=== PATIENT | female | born 1950 | race Caucasian/White ===

== ENCOUNTER 2024-09-17 20:51 | Inpatient (IN) | payer MEDICARE, OTHER ==
[~2024-09-17] VITALS: Ht 160 cm; Wt 81.6 kg
[2024-09-17 22:34] LABS: BASOPHILS # (AUTO) 0.1 K/uL (0.0-0.2); BASOPHILS % (AUTO) 0.8 % (0.0-2.0); EOSINOPHILS # (AUTO) 0.5 K/uL (0.0-0.7); EOSINOPHILS % (AUTO) 5.4 % (0.0-6.0); HEMATOCRIT 40 % (33-45); HEMOGLOBIN 13.2 g/dL (11.5-14.8); LYMPHOCYTES # (AUTO) 2.4 K/uL (0.8-4.8); LYMPHOCYTES % (AUTO) 25.1 % (20.0-44.0); MEAN CORPUSCULAR HEMOGLOBIN 30 PG (26.0-33.0); MEAN CORPUSCULAR HGB CONC 33 g/dl (31.0-36.0); MEAN CORPUSCULAR VOLUME 90 fL (82-100); MONOCYTES # (AUTO) 1.1 K/uL (0.1-1.30); MONOCYTES % (AUTO) 11.7 % (2.0-12.0); NEUTROPHILS # (AUTO) 5.6 K/uL (1.8-8.9); PLATELET COUNT (AUTO) 311 K/uL (150-450); RED BLOOD CELL COUNT(AUTO) 4.47 MIL/uL (4.0-5.2); RED CELL DISTRIBUTION WIDTH 14.5 % (11.5-15.0); WHITE BLOOD COUNT (AUTO) 9.7 K/uL (4.3-11.0)
[2024-09-17 22:40] LABS: CALCIUM, SERUM 9.3 mg/dL (8.5-10.1); CARBON DIOXIDE 29 mmol/L (21-32); CHLORIDE 110 mmol/L (98-107); CREATININE 0.9 mg/dL (0.6-1.3); GLUCOSE 111 mg/dL (74-106); POTASSIUM 3.7 mmol/L (3.5-5.1); SODIUM SERUM 148 mmol/L (136-145); UREA NITROGEN, BLOOD 15 mg/dL (7-18)
[2024-09-17 22:47] LABS: ALANINE AMINOTRANSFERASE 32 U/L (12-78); ALBUMIN 3.3 g/dL (3.4-5.0); ALKALINE PHOSPHATASE 142 U/L (46-116); ASPARTATE AMINOTRANSFERASE 26 U/L (15-37); BILIRUBIN,DIRECT 0.1 mg/dL (0.0-0.2); BILIRUBIN,TOTAL 0.2 mg/dL (0.2-1.0)
[2024-09-17 22:48] LABS: ACETAMINOPHEN <10 ug/ml (10-30); ALCOHOL, BLOOD < 3 mg/dL (0-10); SALICYLATE 1.4 mg/dL (2.8-20.0)
[2024-09-17] MEDS ORDERED: OLANZAPINE 10 MG VIAL IM ONE (23:43)
[2024-09-17] MEDS: OLANZAPINE 10 MG VIAL IM ONE (23:47)
[2024-09-18 00:09] LABS: APPEARANCE,URINE CLEAR (CLEAR); BILIRUBIN,URINE NEGATIVE (NEGATIVE); BLOOD, URINE NEGATIVE Ery/uL (NEGATIVE); COLOR,URINE YELLOW (YELLOW); KETONES,URINE NEGATIVE (NEGATIVE); LEUKOCYTE ESTERASE ,URINE NEGATIVE (NEGATIVE); NITRITE, URINE NEGATIVE (NEGATIVE); PROTEIN,URINE NEGATIVE (NEGATIVE); UGLUCOSE NEGATIVE (NEGATIVE); UROBILINOGEN,URINE 0.2 EU/dL (0.2)
[2024-09-18 00:18] LABS: AMPHETAMINE, URINE NEGATIVE (NEGATIVE); BARBITURATE, URINE NEGATIVE (NEGATIVE); BENZODIAZEPINE, URINE NEGATIVE (NEGATIVE); CANNABINOID, URINE NEGATIVE (NEGATIVE); COCCAINE, URINE NEGATIVE (NEGATIVE); OPIATE, URINE NEGATIVE (NEGATIVE); PHENCYCLIDINE SCREEN,URINE NEGATIVE (NEGATIVE)
[2024-09-18 03:55] VITALS: BP 113/64; TEMP 97.7; O2SAT 99
[2024-09-18] MEDS ORDERED: MAGNESIUM HYDROXIDE 30 ML UDC PO PRN (04:00)
[2024-09-18] MEDS ORDERED: MAG HYDROX/AL HYDROX/SIMETH 30 ML UDC PO PRN (04:00)
[2024-09-18] MEDS ORDERED: TEMAZEPAM 7.5 MG CAPSULE PO PRN (04:00)
[2024-09-18] MEDS ORDERED: ATOR40TA PO (04:42)
[2024-09-18] MEDS ORDERED: CRAN500T3 PO (04:44)
[2024-09-18] MEDS ORDERED: DIVA125C2 PO (04:45)
[2024-09-18] MEDS ORDERED: DOCU100C36 PO (04:47)
[2024-09-18] MEDS ORDERED: FAMO20TA8 PO (04:48)
[2024-09-18] MEDS ORDERED: HYDR12.55 PO (04:49)
[2024-09-18] MEDS ORDERED: LEVO88TA5 PO (04:50)
[2024-09-18] MEDS ORDERED: LORA-259 PO (04:51)
[2024-09-18] MEDS ORDERED: LOSA50TA39 PO (04:52)
[2024-09-18] MEDS ORDERED: MULT-1119 PO (04:53)
[2024-09-18] MEDS ORDERED: QUET50TA PO (04:55)
[2024-09-18] MEDS ORDERED: QUET25TA PO (04:55)
[2024-09-18] MEDS: BLOOD SUGAR DIAGNOSTIC 1 EACH STRIP IN ONE (05:03)
[2024-09-18] MEDS ORDERED: Z GUARD REMEDY 4 OZ OINT TP PRN (05:30)
[2024-09-18 08:00] VITALS: BP 117/52; TEMP 97.5; O2SAT 100
[2024-09-18] MEDS: LORAZEPAM 0.5 MG TABLET PO PRN (09:52)
[2024-09-18] MEDS: OXCARBAZEPINE 150 MG TABLET PO SCH (12:59)
[2024-09-18 16:00] VITALS: BP 121/58; TEMP 98; O2SAT 100
[2024-09-18] MEDS: FAMOTIDINE (20 MG) 20 MG TABLET PO SCH (17:00)
[2024-09-18 20:21] VITALS: BP 102/54; TEMP 98; O2SAT 99
[2024-09-18] MEDS: ATORVASTATIN 40 MG TABLET PO SCH (21:23)
[2024-09-19 07:47] LABS: BASOPHILS % (AUTO) 0.8 % (0.0-2.0); EOSINOPHILS # (AUTO) 0.4 K/uL (0.0-0.7); EOSINOPHILS % (AUTO) 6.8 % (0.0-6.0); HEMATOCRIT 40 % (33-45); HEMOGLOBIN 13.3 g/dL (11.5-14.8); LYMPHOCYTES # (AUTO) 1.8 K/uL (0.8-4.8); LYMPHOCYTES % (AUTO) 29.1 % (20.0-44.0); MEAN CORPUSCULAR HEMOGLOBIN 30 PG (26.0-33.0); MEAN CORPUSCULAR HGB CONC 33 g/dl (31.0-36.0); MEAN CORPUSCULAR VOLUME 90 fL (82-100); MONOCYTES # (AUTO) 0.6 K/uL (0.1-1.30); MONOCYTES % (AUTO) 10.8 % (2.0-12.0); NEUTROPHILS # (AUTO) 3.2 K/uL (1.8-8.9); NEUTROPHILS % (AUTO) 52.5 % (43.0-81.0); PLATELET COUNT (AUTO) 301 K/uL (150-450); RED BLOOD CELL COUNT(AUTO) 4.45 MIL/uL (4.0-5.2); RED CELL DISTRIBUTION WIDTH 14.5 % (11.5-15.0)
[2024-09-19 07:51] LABS: CALCIUM, SERUM 8.8 mg/dL (8.5-10.1); CREATININE 0.7 mg/dL (0.6-1.3); POTASSIUM 4.4 mmol/L (3.5-5.1)
[2024-09-19 08:00] VITALS: BP 110/88; TEMP 97.8; O2SAT 99
[2024-09-19] MEDS: LEVOTHYROXINE SODIUM 88 MCG TABLET PO SCH (08:27)
[2024-09-19] MEDS: HYDROCHLOROTHIAZIDE 25 MG TABLET PO SCH (08:28)
[2024-09-19] MEDS: DOCUSATE SODIUM 100 MG CAPSULE PO SCH (08:29)
[2024-09-19] MEDS: LOSARTAN POTASSIUM 50 MG TABLET PO SCH (08:29)
[2024-09-19] MEDS: MULTIVITAMINS,THERAGRAN 1 UDTAB TABLET PO SCH (08:29)
[2024-09-19] MEDS: LORAZEPAM 0.5 MG TABLET PO PRN (10:07)
[2024-09-19] MEDS: Fluoxetine 10 mg capsule PO SCH (13:03)
[2024-09-19 16:00] VITALS: BP 102/64; TEMP 97.8; O2SAT 100
[2024-09-19] MEDS: OXCARBAZEPINE 150 MG TABLET PO SCH (17:29)
[2024-09-19] MEDS: TEMAZEPAM 7.5 MG CAPSULE PO PRN (22:05)
[2024-09-19 23:01] VITALS: BP 93/62; TEMP 98.2; O2SAT 97
[2024-09-20 08:00] VITALS: BP 104/64; TEMP 98; O2SAT 100
[2024-09-20] MEDS: ACETAMINOPHEN 325 MG TABLET PO PRN (10:00)
[2024-09-20] MEDS: IBUPROFEN 600 MG TABLET PO PRN (11:58)
[2024-09-20 15:16] VITALS: BP 105/66; TEMP 98.8; O2SAT 96
[2024-09-20] MEDS: LORAZEPAM 0.5 MG TABLET PO ONE (18:20)
[2024-09-20 20:15] VITALS: BP 121/59; TEMP 98.3; O2SAT 95
[2024-09-21 08:00] VITALS: BP 124/79; TEMP 97.2; O2SAT 99
[2024-09-21] MEDS: OXCARBAZEPINE 150 MG TABLET PO SCH (15:18)
[2024-09-21 16:00] VITALS: BP 119/64; TEMP 98.7; O2SAT 98
[2024-09-21 18:11] LABS: BASOPHILS # (AUTO) 0.1 K/uL (0.0-0.2); BASOPHILS % (AUTO) 0.9 % (0.0-2.0); EOSINOPHILS # (AUTO) 0.4 K/uL (0.0-0.7); EOSINOPHILS % (AUTO) 4.1 % (0.0-6.0); HEMATOCRIT 43 % (33-45); HEMOGLOBIN 14.4 g/dL (11.5-14.8); LYMPHOCYTES # (AUTO) 1.8 K/uL (0.8-4.8); LYMPHOCYTES % (AUTO) 18.9 % (20.0-44.0); MEAN CORPUSCULAR HEMOGLOBIN 30 PG (26.0-33.0); MEAN CORPUSCULAR HGB CONC 34 g/dl (31.0-36.0); MEAN CORPUSCULAR VOLUME 89 fL (82-100); MONOCYTES # (AUTO) 0.7 K/uL (0.1-1.30); MONOCYTES % (AUTO) 7.8 % (2.0-12.0); NEUTROPHILS # (AUTO) 6.5 K/uL (1.8-8.9); NEUTROPHILS % (AUTO) 68.3 % (43.0-81.0); PLATELET COUNT (AUTO) 329 K/uL (150-450); RED CELL DISTRIBUTION WIDTH 14.7 % (11.5-15.0); WHITE BLOOD COUNT (AUTO) 9.5 K/uL (4.3-11.0)
[2024-09-21 18:32] LABS: ALBUMIN 3.5 g/dL (3.4-5.0); BILIRUBIN,TOTAL 0.2 mg/dL (0.2-1.0); CALCIUM, SERUM 9.2 mg/dL (8.5-10.1); CREATININE 0.9 mg/dL (0.6-1.3); POTASSIUM 3.5 mmol/L (3.5-5.1); TOTAL PROTEIN, SERUM 7.7 g/dL (6.4-8.2)
[2024-09-21 20:00] VITALS: BP 144/83; TEMP 97.7; O2SAT 99
[2024-09-22 08:00] VITALS: BP 115/61; TEMP 97.7; O2SAT 98
[2024-09-22 16:00] VITALS: BP 123/59; TEMP 98.1; O2SAT 99
[2024-09-22 19:59] VITALS: BP 140/97; TEMP 98.2; O2SAT 98
[2024-09-22] MEDS: OLANZAPINE ZYDIS 5 MG TAB.RAPDIS PO SCH (21:38)
[2024-09-23 08:00] VITALS: BP 114/63; TEMP 97.7; O2SAT 96
[2024-09-23 16:00] VITALS: BP 118/71; TEMP 97.7; O2SAT 95
[2024-09-23 20:00] VITALS: BP 122/62; TEMP 98.4; O2SAT 97
[2024-09-24 08:00] VITALS: BP 129/98; TEMP 97.8; O2SAT 100
[2024-09-24 16:00] VITALS: BP 106/62; TEMP 98; O2SAT 96
[2024-09-24 22:24] LABS: APPEARANCE,URINE CLEAR (CLEAR); BILIRUBIN,URINE NEGATIVE (NEGATIVE); BLOOD, URINE NEGATIVE Ery/uL (NEGATIVE); COLOR,URINE YELLOW (YELLOW); KETONES,URINE NEGATIVE (NEGATIVE); LEUKOCYTE ESTERASE ,URINE 2+ (NEGATIVE); NITRITE, URINE NEGATIVE (NEGATIVE); PROTEIN,URINE NEGATIVE (NEGATIVE); UGLUCOSE NEGATIVE (NEGATIVE); UROBILINOGEN,URINE 0.2 EU/dL (0.2)
[2024-09-24 22:43] LABS: ADD URINE CULTURE YES; BACTERIA,URINE Many /HPF (None Seen)
[2024-09-24 22:44] LABS: SQUAMOUS EPITHELIAL CELL,UR Moderate /HPF (None Seen); WBC,URINE 21-50 /HPF (0-3)
[2024-09-25 08:00] VITALS: BP 105/67; TEMP 97.6; O2SAT 96
[2024-09-25] MEDS: CEPHALEXIN MONOHYDRATE 500 MG CAPSULE PO SCH (09:28)
[2024-09-25 16:00] VITALS: BP 132/67; TEMP 98.2; O2SAT 97
[2024-09-25 20:17] VITALS: BP 128/81; TEMP 97.9; O2SAT 98
[2024-09-26 08:00] VITALS: BP 119/53; TEMP 98.1; O2SAT 100
[2024-09-26] MEDS: diphenhydrAMINE HCL ELIX 25 MG/10 ML UDC PO PRN (15:11)
[2024-09-26 15:44] VITALS: BP 125/64; TEMP 98.6; O2SAT 100
[2024-09-26 20:07] VITALS: BP 123/55; TEMP 98.6; O2SAT 100
[2024-09-27 08:00] VITALS: BP 138/80; TEMP 98.6; O2SAT 99
[2024-09-27 16:00] VITALS: BP 152/63; TEMP 98.4; O2SAT 98
[2024-09-27 20:02] VITALS: BP 148/123; TEMP 98.5; O2SAT 97
[2024-09-28 08:00] VITALS: BP 108/76; TEMP 97.6; O2SAT 97
[2024-09-28 15:58] VITALS: BP 118/85; TEMP 98; O2SAT 97
[2024-09-28 20:02] VITALS: BP 115/70; TEMP 97.6; O2SAT 97
[2024-09-29 08:00] VITALS: BP 120/53; TEMP 98.1; O2SAT 98
[2024-09-29 16:00] VITALS: BP 105/67; TEMP 98.1; O2SAT 96
[2024-09-29 20:19] VITALS: BP 121/83; TEMP 98.2; O2SAT 100
[2024-09-29 23:00] VITALS: BP 117/90; TEMP 98.4; O2SAT 96
[2024-09-30 08:00] VITALS: BP 100/86; TEMP 98.6; O2SAT 97
[2024-09-30 08:52] VITALS: BP 100/86
== END 2024-09-30 14:20 | DRG 885 ==
LOC: ER 21:10 → GPS 09-18 02:44
PROVIDERS: ADMIT Nurse Practitioner Psychiatric/Mental Health
DX: F39 Unspecified mood [affective] disorder (principal); F02.83 Dementia in other diseases classified elsewhere, unspecified severity, with mood disturbance; E87.0 Hyperosmolality and hypernatremia; E44.1 Mild protein-calorie malnutrition; F02.82 Dementia in other diseases classified elsewhere, unspecified severity, with psychotic disturbance; F02.84 Dementia in other diseases classified elsewhere, unspecified severity, with anxiety; G93.40 Encephalopathy, unspecified; N39.0 Urinary tract infection, site not specified; F29 Unspecified psychosis not due to a substance or known physiological condition; G30.9 Alzheimer's disease, unspecified; Z20.822 Contact with and (suspected) exposure to COVID-19; Z73.6 Limitation of activities due to disability; I10 Essential (primary) hypertension; R13.10 Dysphagia, unspecified; K21.9 Gastro-esophageal reflux disease without esophagitis; F32.A Depression, unspecified; F41.9 Anxiety disorder, unspecified; F43.10 Post-traumatic stress disorder, unspecified; E78.5 Hyperlipidemia, unspecified; E03.9 Hypothyroidism, unspecified; H26.9 Unspecified cataract; B95.1 Streptococcus, group B, as the cause of diseases classified elsewhere
CPT/HCPCS: 36415; 71045-TC; 80048-TC; 80053-TC; 80061-TC; 80076-TC; 81001; 82140-TC; 82962-TC; 84443-TC; 85025-TC; 87081-TC; 87086-TC; G0480; J3490; Q0163